=== PATIENT | female | born 1945 | race Two or more races ===

== ENCOUNTER 2024-05-12 18:39 | Inpatient (IN) | payer OTHER ==
[~2024-05-12] VITALS: Ht 160 cm; Wt 73.5 kg
--- NOTE | 2024-05-12 19:58 | NUR ---
PACIENTE ALERTA Y ORIENTADA X3 EN COMPANIA DE FAMILIAR. FAMILIAR REFIERE QUE PACIENTE COMENZO CON DIARREAS DESDE HACE UNOS APONTE QUE NO [place] DAV[place]. SE DOMINGA S/V Y SE UBICA.
[2024-05-12] MEDS ORDERED: KETOROLAC TROMETHAMINE 15 MG VIAL IM ONE (20:30)
--- NOTE | 2024-05-12 21:13 | NUR ---
SE ORIENTA A PACIENTE SOBRE TX MEDICO, REFIERE ENTENDER. SE REALIZAN MUESTRAS DE LABORATORIO BAJO MEDIDAS ASEPTICAS. SE ADMINISTRA MEDICAMENTO HILDA ORDEN MEDICA. SE COORDINA NC.
[2024-05-12 21:19] LABS: MEAN CELL VOLUME 91.4 fL (80.00-100.00); MEAN CORPUSCULAR HGB CONC 34.4 g/dl (32.0-36.0); PLATELET COUNT 151 K/uL (150-450); RED BLOOD COUNT 2.33 M/uL (4.00-6.00); RED CELL DISTRIBUTION WIDTH 16.8 % (11.5-14.5)
[2024-05-12 21:27] LABS: HEMATOCRIT 21.3 % (36.0-45.00); HEMOGLOBIN 7.3 g/dL (12.0-15.00); MEAN CORPUSCULAR HEMOGLOBIN 31.3 pg (27.00-32.0)
[2024-05-12 21:40] LABS: ALBUMIN 2.1 gm/dL (3.4-5.0); BILIRUBIN TOTAL 0.62 mg/dL (0.3-1.2); CALCIUM 8.8 mg/dL (8.5-10.1); CREATININE SERUM 1.6 mg/dL (0.55-1.02); GFR 31.09; GLOBULINA 4.9 G/DL (2.4-3.5); POTASSIUM 4.67 mEq/L (3.5-5.1)
[2024-05-12] MEDS ORDERED: ONDANSETRON HCL 4 MG in 0.9 % SODIUM CHLORIDE 50 ML IV PRN (23:45)
[2024-05-12] MEDS ORDERED: 0.9 % SODIUM CHLORIDE 1,000 ML IV SCH (23:45)
[2024-05-12] MEDS ORDERED: PANTOPRAZOLE SODIUM 40 MG/VIAL VIAL IV SCH (23:48)
[2024-05-13 00:16] LABS: URINE APPEARANCE Clear; URINE BILIRRUBIN Negative (NEGATIVE); URINE BLOOD Negative; URINE COLOR Yellow; URINE GLUCOSE Negative (NEGATIVE); URINE KETONE Negative (NEGATIVE); URINE LEUKOCYTE Negative; URINE NITRATE Negative; URINE PROTEIN Negative (NEGATIVE); URINE UROBILINOGEN 0.2 E.U./dl
[2024-05-13 00:20] LABS: URINE BACTERIA 24.4 uL (0.0-1933); URINE EPITHELIAL CELLS 4.5 uL (0.0-38.8); URINE RBC 3.3 uL (0.0-20.8); URINE WBC 19.2 uL (0.0-23.2)
[2024-05-13 00:25] LABS: URINE CAST 1.32 uL (0.0-1.40)
[2024-05-13] MEDS ORDERED: ATORVASTATIN CALCIUM 40 MG TABLET PO SCH (09:00)
[2024-05-13 09:39] LABS: INR 1.23; PARTIAL THROMBOPLASTIN TIME 29.3 SECONDS (22.0-34.0); PROTHROMBIN TIME 13.2 SECONDS (9.0-11.5)
[2024-05-13 09:40] VITALS: BP 83/65
[2024-05-13 09:51] VITALS: BP 83/65; O2SAT 99
[2024-05-13 16:14] VITALS: BP 95/55; O2SAT 97
[2024-05-13 18:22] VITALS: O2SAT 98
[2024-05-13 21:21] VITALS: O2SAT 96
[2024-05-14] VITALS (9 sets, daily range): BP systolic 94–107; BP diastolic 50–65; O2SAT 90–98
[2024-05-14] MEDS ORDERED: FENOFIBRATE150 MG PO (16:20)
[2024-05-14] MEDS ORDERED: NORVASC5 MG PO (16:20)
[2024-05-14] MEDS ORDERED: ATACAND HCT 321 EACH PO (16:20)
[2024-05-14] MEDS ORDERED: LIPITOR40 MG PO (16:20)
[2024-05-14] MEDS ORDERED: Cyanocobalamin/Mecobalamin 1 TAB.SL SL NR (16:45)
[2024-05-14] MEDS ORDERED: VITAMIN B COMPLEX 1 EACH PO SCH (17:00)
[2024-05-14 21:25] LABS: HEMATOCRIT 31.4 % (36.0-45.00); HEMOGLOBIN 10.6 g/dL (12.0-15.00); MEAN CELL VOLUME 88.8 fL (80.00-100.00); MEAN CORPUSCULAR HEMOGLOBIN 30.1 pg (27.00-32.0); MEAN CORPUSCULAR HGB CONC 33.9 g/dl (32.0-36.0); PLATELET COUNT 161 K/uL (150-450); RED BLOOD COUNT 3.54 M/uL (4.00-6.00); RED CELL DISTRIBUTION WIDTH 17.4 % (11.5-14.5)
[2024-05-14 21:31] LABS: ALBUMIN 2.1 gm/dL (3.4-5.0); CALCIUM 8.3 mg/dL (8.5-10.1); CREATININE SERUM 1.25 mg/dL (0.55-1.02); GFR 41.34; PHOSPHOROUS 2.9 mg/dL (2.5-4.9); POTASSIUM 4.65 mEq/L (3.5-5.1)
[2024-05-14 21:44] LABS: FERRITIN 1454.6 NG/ML (8-252)
[2024-05-15] VITALS (9 sets, daily range): BP systolic 100–132; BP diastolic 50–82; O2SAT 90–98
[2024-05-15 07:06] LABS: HEMATOCRIT 32.1 % (36.0-45.00); MEAN CELL VOLUME 89.5 fL (80.00-100.00); MEAN CORPUSCULAR HEMOGLOBIN 30.7 pg (27.00-32.0); MEAN CORPUSCULAR HGB CONC 34.3 g/dl (32.0-36.0); PLATELET COUNT 146 K/uL (150-450); RED BLOOD COUNT 3.59 M/uL (4.00-6.00); RED CELL DISTRIBUTION WIDTH 17.2 % (11.5-14.5)
[2024-05-15 07:34] LABS: ALBUMIN 1.9 gm/dL (3.4-5.0); CALCIUM 8.3 mg/dL (8.5-10.1); CREATININE SERUM 1.22 mg/dL (0.55-1.02); GFR 42.52; PHOSPHOROUS 2.9 mg/dL (2.5-4.9); POTASSIUM 4.42 mEq/L (3.5-5.1)
[2024-05-15] MEDS ORDERED: SOD FERRIC GLUC COMPLX/SUCROSE 62.5 MG/5 ML AMPUL IV SCH (09:00)
[2024-05-15] MEDS ORDERED: Cyanocobalamin/Mecobalamin 1 TAB.SL SL SCH (09:00)
[2024-05-15 12:28] LABS: FOLIC ACID 11.2 ng/ml (4.78-20)
[2024-05-15] MEDS ORDERED: POLYETHYLENE GLYCOL 3350 17 GM BLIST.PACK PO SCH (17:00)
[2024-05-16] VITALS: BP 100/54; O2SAT 95
[2024-05-16 01:00] VITALS: O2SAT 95
[2024-05-16 05:40] VITALS: O2SAT 89
[2024-05-16 09:31] LABS: HEMATOCRIT 32.5 % (36.0-45.00); RED BLOOD COUNT 3.6 M/uL (4.00-6.00)
[2024-05-16 10:24] VITALS: O2SAT 94
[2024-05-16] MEDS ORDERED: AMLODIPINE-OLM1 EAC2 (17:38)
== END 2024-05-16 11:20 | disposition home or self-care (01) | DRG 378 ==
LOC: ER 18:40 → SURG 23:54
PROVIDERS: General Practice; Internal Medicine Hematology & Oncology; Internal Medicine Nephrology; ADMIT Student in an Organized Health Care Education/Training Program; ATTEND Student in an Organized Health Care Education/Training Program
PROC: BW21ZZZ Computerized Tomography (CT Scan) of Abdomen and Pelvis (ICD-10-PCS; principal; 2024-05-12)
PROC: 4A12X4Z Monitoring of Cardiac Electrical Activity, External Approach (ICD-10-PCS; 2024-05-13)
PROC: 30233N1 Transfusion of Nonautologous Red Blood Cells into Peripheral Vein, Percutaneous Approach (ICD-10-PCS; 2024-05-13)
DX: K92.2 Gastrointestinal hemorrhage, unspecified (principal); N17.8 Other acute kidney failure; E78.49 Other hyperlipidemia; I12.9 Hypertensive chronic kidney disease with stage 1 through stage 4 chronic kidney disease, or unspecified chronic kidney disease; N18.30 Chronic kidney disease, stage 3 unspecified; D64.89 Other specified anemias; K62.89 Other specified diseases of anus and rectum

== ENCOUNTER 2024-05-16 17:23 | Inpatient (IN) | payer OTHER ==
[~2024-05-16] VITALS: Ht 162.6 cm; Wt 72.6 kg
[~2024-05-16 17:23] MED LIST: ATACAND HCT 321 EACH PO; FENOFIBRATE150 MG PO; LIPITOR40 MG PO; NORVASC5 MG PO
--- NOTE | 2024-05-16 17:30 | NUR ---
PACIENTE DORMIDA EN YADY CON PARAMEDICOS. FAMILIAR REFIERE LA MISMA SE DIRI ELZBIETA AL NORMA Y PRESENTABA DEBILIDAD POR LO CUAL REFIERE FAMILIAR SE DESPLOMO Y NO TENIA FUERZAS PARA LEVANTARSE. PACIENTE CON ANGIO #22 DE AMBULANCIA EN MANO DERECHA, AREA AMIE DE EDEMA Y/O ERITEMA. PACIENTE CON CANULA NASAL A [address] Alice LEVYIEN ORDENA COLOCAR EN AREA DE CRITICO. SE NOTIFICA A MR PRISCILLA FERNANDEZ PARA COLOCAR LA MISMA EN AREA INDICADA POR DRA Alice VAIL Y ENTRE- GAR A MR Dejon LEONE RN.
[2024-05-16] MEDS ORDERED: AMLODIPINE-OLM1 EAC2 (17:38)
[2024-05-16] MEDS ORDERED: PIPERACILLIN/TAZOBACTAM SODIUM 3.375 GM VIAL IV ONE ×2 (18:00→18:49)
[2024-05-16] MEDS ORDERED: PANTOPRAZOLE SODIUM 40 MG/VIAL VIAL IV ONE (18:00)
[2024-05-16 19:06] LABS: HEMATOCRIT 34.1 % (36.0-45.00); HEMOGLOBIN 11.5 g/dL (12.0-15.00); MEAN CELL VOLUME 89.6 fL (80.00-100.00); MEAN CORPUSCULAR HEMOGLOBIN 30.3 pg (27.00-32.0); MEAN CORPUSCULAR HGB CONC 33.8 g/dl (32.0-36.0)
[2024-05-16 19:14] LABS: POTASSIUM 4.75 mEq/L (3.5-5.1)
[2024-05-16 19:22] LABS: BILIRUBIN TOTAL 1.92 mg/dL (0.3-1.2); CALCIUM 8.2 mg/dL (8.5-10.1); CREATININE SERUM 1.31 mg/dL (0.55-1.02); GFR 39.16; GLOBULINA 4.9 G/DL (2.4-3.5); TOTAL PROTEIN 6.9 gm/dL (6.4-8.2)
[2024-05-16 19:29] LABS: INR 1.49
[2024-05-16 19:30] LABS: PLATELET COUNT 126 K/uL (150-450); PROTHROMBIN TIME 15.8 SECONDS (9.0-11.5)
[2024-05-16 19:37] LABS: D DIMER 4.42 MG/L
[2024-05-16] MEDS ORDERED: DIPHENHYDRAMINE HCL 50 MG/ML VIAL 1ML IV ONE (20:00)
[2024-05-16] MEDS ORDERED: 0.9 % SODIUM CHLORIDE 1,000 ML IV ONE (20:00)
[2024-05-16] MEDS ORDERED: METHYLPREDNISOLONE SOD SUCC 40 MG VIAL IV ONE (20:00)
[2024-05-16 20:14] LABS: ABG PH 7.456 (7.35-7.45); ABG PO2 93.7 mmHg (80-100); ABG pCO2 22.4 mmHg (35-45); BASE EXCESS -6.1 mmol/l; BICARBONATE 15.4 mmol/l (23-25); SaO2 97.6 %; Tco2 16.1 mmol/l
[2024-05-16 20:15] LABS: BILIRUBIN TOTAL 1.9 mg/dL (0.3-1.2); BILIRUBIN,CONJUGATED 1.09 mg/dL (0.0-0.2); BILIRUBIN,UNCONJUGATED 0.81 mg/dL (0.0-0.6)
[2024-05-16 20:22] LABS: PH,URINE 5.5 (5.0-8.0); URINE APPEARANCE Cloudy; URINE BILIRRUBIN Small (NEGATIVE); URINE BLOOD Moderate; URINE COLOR Dark Yellow; URINE GLUCOSE Negative (NEGATIVE); URINE KETONE Negative (NEGATIVE); URINE LEUKOCYTE Trace; URINE NITRATE Negative; URINE PROTEIN 30 (NEGATIVE)
[2024-05-16 20:26] LABS: URINE BACTERIA 554.4 uL (0.0-1933); URINE CAST 1.91 uL (0.0-1.40); URINE EPITHELIAL CELLS 18.6 uL (0.0-38.8); URINE RBC 16.2 uL (0.0-20.8)
[2024-05-16 20:44] LABS: URINE CRYSTALS MODERATE /HPF
--- NOTE | 2024-05-16 21:15 | NUR ---
SE EDUCA A PTE SOBRE TX MEDICO, SE DOMIGNA MUESTRAS DE LABORATORIO UTILIZANDO MEDIDAS ASEPTICAS. SE COLOCA H/L AMIE DE EDEMA EN BRAZO RT. SE ADMINISTRAN MEDICAMENTOS HILDA ORDEN MEDICA. SE NOTIFICAN ESTUDIOS DE CT Y RX PENDIENTES A REALIZAR. SE COLOCA DELA CRUZ A PTE UTILIZANDO MEDIDAS ASEPTICAS Y ESTERILES, SE ANDREW MUESTRAS DE UA Y UC. FAMILIARES DE PTE FIRMAN DNR+DNI, NO DIALYSIS, NO TRANSFUSIONES. PTE SE CONTINUA MONOITORIANDO POR CAMBIOS.
[2024-05-16] MEDS ORDERED: DIPHENHYDRAMINE HCL 50 MG/ML VIAL 1ML ONE (21:19)
[2024-05-16] MEDS ORDERED: METHYLPREDNISOLONE SOD SUCC 40 MG VIAL ONE (21:19)
[2024-05-16 21:47] LABS: allen test SATISFACTORY; mode ROOM AIR; o2 21 %; puncture site RADIAL RIGHT
--- NOTE | 2024-05-16 22:21 | NUR ---
PTE SE TRASLADA A UNIDAD DE OBSERVACION. PTE SE UBICA EN K7, SE CONECTA A MONITOR CARDIACO CON OXIMETRIA CONTINUA. PTE CON H/L X2 EN BRAZO RT AMIE DE EDEMA. PTE CON IV FLUIDS DE 0.9NSS BAJANDO A 80ML/HR. DELA CRUZ COLOCAD BAJANDO A GRAVEDAD. PTE CON DNR+DNI FIRMADO POR FAMILIARES. PTE EN ESPERA DE LECTURAS DE CT. PTE SE CONTINUA MONITORIANDO POR CAMBIOS.
[2024-05-16] MEDS ORDERED: 0.9 % SODIUM CHLORIDE 1,000 ML IV SCH (23:15)
[2024-05-16] MEDS ORDERED: CEFTRIAXONE SODIUM 2,000 MG in 0.9 % SODIUM CHLORIDE 100 ML IV SCH (23:17)
[2024-05-16] MEDS ORDERED: FUROsemide 20 MG/2 ML VIAL IV SCH (23:17)
[2024-05-16] MEDS ORDERED: MAGNESIUM HYDROXIDE 400 MG/5 ML ML PO ONE (23:30)
[2024-05-16] MEDS ORDERED: LACTULOSE 10 G/15 ML ML PO ONE (23:30)
[2024-05-16] MEDS ORDERED: ONDANSETRON HCL 4 MG in 0.9 % SODIUM CHLORIDE 50 ML IV PRN (23:30)
[2024-05-16] MEDS ORDERED: MINERAL OIL 30 ML BLIST.PACK PO ONE (23:30)
[2024-05-17] VITALS (9 sets, daily range): BP systolic 96–108; BP diastolic 55–62; O2SAT 92–98
[2024-05-17] MEDS ORDERED: METRONIDAZOLE/SODIUM CHLORIDE 100 ML IV SCH (01:00)
[2024-05-17] MEDS ORDERED: IPRATROPIUM BROMIDE 0.5 MG/2.5 ML AMPUL.NEB IH SCH (01:00)
[2024-05-17 07:46] LABS: ALBUMIN 1.8 gm/dL (3.4-5.0); BILIRUBIN TOTAL 1.36 mg/dL (0.3-1.2); BILIRUBIN,CONJUGATED 0.94 mg/dL (0.0-0.2); BILIRUBIN,UNCONJUGATED 0.42 mg/dL (0.0-0.6); TOTAL PROTEIN 6.1 gm/dL (6.4-8.2)
[2024-05-17 07:57] LABS: CHOL HDL RATIO 11.2 (0-5.0)
[2024-05-17 07:58] LABS: C-REACTIVE PROTEIN 9.92 MG/DL (0.00-0.29)
[2024-05-17 08:04] LABS: COVID-19 AG NEGATIVE (NEGATIVE)
[2024-05-17] MEDS ORDERED: PANTOPRAZOLE SODIUM 40 MG/VIAL VIAL IV SCH (09:00)
[2024-05-17] MEDS ORDERED: IRON FUM,PS/FOLIC/BCOMP,C NO.9 1 CAP CAPSULE PO SCH (09:00)
[2024-05-17 09:55] LABS: HEMATOCRIT 36.9 % (36.0-45.00); HEMOGLOBIN 12.5 g/dL (12.0-15.00); MEAN CELL VOLUME 89.8 fL (80.00-100.00); MEAN CORPUSCULAR HEMOGLOBIN 30.4 pg (27.00-32.0); MEAN CORPUSCULAR HGB CONC 33.8 g/dl (32.0-36.0); RED BLOOD COUNT 4.11 M/uL (4.00-6.00); RED CELL DISTRIBUTION WIDTH 18.1 % (11.5-14.5)
[2024-05-17 10:34] LABS: BILIRUBIN TOTAL 1.07 mg/dL (0.3-1.2); CALCIUM 8.4 mg/dL (8.5-10.1); CREATININE SERUM 1.35 mg/dL (0.55-1.02); GFR 37.83; GLOBULINA 4.6 G/DL (2.4-3.5); POTASSIUM 5.7 mEq/L (3.5-5.1); TOTAL PROTEIN 6.6 gm/dL (6.4-8.2)
[2024-05-17 10:48] LABS: PLATELET COUNT 82 K/uL (150-450)
[2024-05-18] VITALS (9 sets, daily range): BP systolic 96–118; BP diastolic 50–67; O2SAT 90–95
[2024-05-18 07:29] LABS: ALBUMIN 1.9 gm/dL (3.4-5.0); BILIRUBIN TOTAL 0.9 mg/dL (0.3-1.2); CALCIUM 8.3 mg/dL (8.5-10.1); CREATININE SERUM 1.35 mg/dL (0.55-1.02); GFR 37.83; POTASSIUM 4.91 mEq/L (3.5-5.1); TOTAL PROTEIN 5.9 gm/dL (6.4-8.2)
[2024-05-18 07:54] LABS: HEMOGLOBIN 11.1 g/dL (12.0-15.00); MEAN CORPUSCULAR HEMOGLOBIN 30.6 pg (27.00-32.0); MEAN CORPUSCULAR HGB CONC 34.8 g/dl (32.0-36.0); RED BLOOD COUNT 3.63 M/uL (4.00-6.00); RED CELL DISTRIBUTION WIDTH 18.1 % (11.5-14.5)
[2024-05-18 07:55] LABS: PLATELET COUNT 84 K/uL (150-450)
[2024-05-18] MEDS ORDERED: NA PHOS,M-B/NA PHOS,DI-BA 1 BOTTLE ENEMA RECTAL NR (10:36)
[2024-05-18 13:57] LABS: FECAL LEUKOCYTES NEGATIVE (NEGATIVE)
[2024-05-18 14:02] LABS: ob NEGATIVE (NEGATIVE)
[2024-05-18] MEDS ORDERED: SODIUM CL 0.9% 50 ML IV.SOLN IV ONE (16:25)
[2024-05-18 18:52] LABS: INFLUENZA A AG NEGATIVE (NEGATIVE)
[2024-05-19] VITALS (8 sets, daily range): BP systolic 90–104; BP diastolic 50–61; O2SAT 90–97
[2024-05-19 21:31] LABS: CALCIUM 8.3 mg/dL (8.5-10.1); CHOL HDL RATIO 7.9 (0-5.0); CREATININE SERUM 1.47 mg/dL (0.55-1.02); GFR 34.29; POTASSIUM 4.47 mEq/L (3.5-5.1)
[2024-05-20] VITALS (11 sets, daily range): BP systolic 73–101; BP diastolic 41–57; O2SAT 90–99
[2024-05-20] MEDS ORDERED: AMINO ACIDS 4.25 %/DEXTROSE 5% 1,000 ML PERIFERAL SCH (17:00)
[2024-05-21] VITALS (8 sets, daily range): BP systolic 90; BP diastolic 50–55; O2SAT 90–100
[2024-05-21 18:02] LABS: HEMOGLOBIN 11.6 g/dL (12.0-15.00); MEAN CELL VOLUME 87.2 fL (80.00-100.00); MEAN CORPUSCULAR HEMOGLOBIN 29.8 pg (27.00-32.0); MEAN CORPUSCULAR HGB CONC 34.2 g/dl (32.0-36.0); RED CELL DISTRIBUTION WIDTH 18.1 % (11.5-14.5)
[2024-05-21 18:24] LABS: CALCIUM 8.4 mg/dL (8.5-10.1); CREATININE SERUM 1.74 mg/dL (0.55-1.02); GFR 28.22; POTASSIUM 4.86 mEq/L (3.5-5.1)
[2024-05-21 18:27] LABS: PLATELET COUNT 66 K/uL (150-450)
[2024-05-22] VITALS (11 sets, daily range): BP systolic 82–123; BP diastolic 52–71; O2SAT 90–96
[2024-05-22] MEDS ORDERED: 0.9 % SODIUM CHLORIDE 1,000 ML IV SCH (14:45)
[2024-05-22] MEDS ORDERED: ENOXAPARIN SODIUM 30 MG/0.3 ML SYRINGE SUBCUTANEO SCH (17:00)
[2024-05-23 01:44] VITALS: BP 74/41; O2SAT 94
[2024-05-23 02:46] VITALS: O2SAT 90
[2024-05-23 07:25] LABS: ALBUMIN 1.6 gm/dL (3.4-5.0); BILIRUBIN TOTAL 1.36 mg/dL (0.3-1.2); CREATININE SERUM 1.61 mg/dL (0.55-1.02); GFR 30.87; GLOBULINA 3.8 G/DL (2.4-3.5); POTASSIUM 4.27 mEq/L (3.5-5.1); TOTAL PROTEIN 5.4 gm/dL (6.4-8.2)
[2024-05-23 08:35] VITALS: BP 90/50; O2SAT 97
[2024-05-23] MEDS ORDERED: PANTOPRAZOLE SODIUM 40 MG/VIAL VIAL IV SCH (09:00)
[2024-05-23] MEDS ORDERED: FUROsemide 20 MG/2 ML VIAL IV SCH (09:00)
[2024-05-23] MEDS ORDERED: METOPROLOL SUCCINATE 25 MG TAB.SR.24H PO SCH (12:00)
[2024-05-23 13:25] VITALS: O2SAT 98
[2024-05-23 13:50] LABS: HEMATOCRIT 27.7 % (36.0-45.00); MEAN CELL VOLUME 87.4 fL (80.00-100.00); MEAN CORPUSCULAR HGB CONC 34.3 g/dl (32.0-36.0); RED BLOOD COUNT 3.18 M/uL (4.00-6.00); RED CELL DISTRIBUTION WIDTH 18.5 % (11.5-14.5)
[2024-05-23 14:04] LABS: CALCIUM 7.8 mg/dL (8.5-10.1); CREATININE SERUM 1.68 mg/dL (0.55-1.02); GFR 29.39; POTASSIUM 4.34 mEq/L (3.5-5.1)
[2024-05-23 14:31] LABS: HEMOGLOBIN 9.5 g/dL (12.0-15.00); MEAN CORPUSCULAR HEMOGLOBIN 29.8 pg (27.00-32.0); PLATELET COUNT 75 K/uL (150-450)
[2024-05-23 15:45] LABS: ABG PH 7.465 (7.35-7.45); ABG PO2 64.1 mmHg (80-100); ABG pCO2 24.9 mmHg (35-45); BASE EXCESS -4.3 mmol/l; BICARBONATE 17.5 mmol/l (23-25); SaO2 93.3 %; Tco2 18.3 mmol/l
[2024-05-23 15:46] LABS: allen test SATISFACTORY; mode ROOM AIR; o2 21 %; puncture site RADIAL RIGHT
[2024-05-23 17:55] VITALS: BP 109/68; O2SAT 97
[2024-05-23 22:37] VITALS: BP 90/55; O2SAT 96
[2024-05-24 02:27] VITALS: BP 75/50; O2SAT 91
[2024-05-24 03:05] VITALS: BP 80/60
[2024-05-24 08:51] LABS: HEMATOCRIT 28.6 % (36.0-45.00); HEMOGLOBIN 9.7 g/dL (12.0-15.00); MEAN CELL VOLUME 88.1 fL (80.00-100.00); MEAN CORPUSCULAR HEMOGLOBIN 29.7 pg (27.00-32.0); MEAN CORPUSCULAR HGB CONC 33.8 g/dl (32.0-36.0); PLATELET COUNT 68 K/uL (150-450); RED BLOOD COUNT 3.25 M/uL (4.00-6.00); RED CELL DISTRIBUTION WIDTH 18.5 % (11.5-14.5)
[2024-05-24 09:14] LABS: ALBUMIN 1.6 gm/dL (3.4-5.0); BILIRUBIN TOTAL 1.4 mg/dL (0.3-1.2); CREATININE SERUM 1.73 mg/dL (0.55-1.02); GFR 28.41; GLOBULINA 3.7 G/DL (2.4-3.5); POTASSIUM 4.64 mEq/L (3.5-5.1); TOTAL PROTEIN 5.3 gm/dL (6.4-8.2)
[2024-05-24] MEDS ORDERED: MIDODRINE HCL 5 MG TABLET PO SCH (17:00)
[2024-05-24 18:13] VITALS: BP 93/54; O2SAT 98
[2024-05-25] VITALS (12 sets, daily range): BP systolic 73–136; BP diastolic 48–70; O2SAT 96–100
[2024-05-25] MEDS ORDERED: CEFTRIAXONE SODIUM 2,000 MG VIAL IV STA (00:23)
[2024-05-25] MEDS ORDERED: NOREPINEPHRINE BITARTRATE 8 MG in DEXTROSE 5 % IN WATER 250 ML IV SCH (00:30)
[2024-05-25 03:28] LABS: ABG PH 7.399 (7.35-7.45); ABG PO2 94.4 mmHg (80-100); ABG pCO2 24.6 mmHg (35-45); BASE EXCESS -7.9 mmol/l; BICARBONATE 14.9 mmol/l (23-25); SaO2 97.1 %; Tco2 15.6 mmol/l
[2024-05-25 06:58] LABS: allen test SATISFACTORY; mode NASAL CANNULA; o2 32 %; puncture site RADIAL LEFT
[2024-05-25] MEDS ORDERED: NOREPINEPHRINE BITARTRATE 1 MG/ML AMPUL IV ONE ×2 (07:04)
[2024-05-25 08:12] LABS: HEMOGLOBIN 11.5 g/dL (12.0-15.00); MEAN CELL VOLUME 87.7 fL (80.00-100.00); MEAN CORPUSCULAR HEMOGLOBIN 29.5 pg (27.00-32.0); MEAN CORPUSCULAR HGB CONC 33.7 g/dl (32.0-36.0); RED BLOOD COUNT 3.88 M/uL (4.00-6.00); RED CELL DISTRIBUTION WIDTH 18.9 % (11.5-14.5)
[2024-05-25 08:14] LABS: PLATELET COUNT 65 K/uL (150-450)
[2024-05-25] MEDS ORDERED: METHYLPREDNISOLONE SOD SUCC 40 MG VIAL IV NR (13:00)
[2024-05-25] MEDS ORDERED: CEFTRIAXONE SODIUM 2,000 MG VIAL IV SCH (17:00)
[2024-05-25 17:59] LABS: URINE APPEARANCE Cloudy; URINE BILIRRUBIN Small (NEGATIVE); URINE BLOOD Large; URINE COLOR Dark Yellow; URINE GLUCOSE Negative (NEGATIVE); URINE KETONE Trace (NEGATIVE); URINE LEUKOCYTE Small; URINE NITRATE Negative; URINE PROTEIN 30 (NEGATIVE)
[2024-05-25 18:03] LABS: URINE BACTERIA 447.9 uL (0.0-1933); URINE EPITHELIAL CELLS 44.8 uL (0.0-38.8); URINE RBC 414.8 uL (0.0-20.8); URINE WBC 22.7 uL (0.0-23.2)
[2024-05-25 18:22] LABS: URINE CRYSTALS MODERATE /HPF
[2024-05-25] MEDS ORDERED: METHYLPREDNISOLONE SOD SUCC 40 MG VIAL IV SCH (21:00)
[2024-05-25] MEDS ORDERED: CLOTRIMAZOLE 10 MG TROCHE MM SCH (21:00)
[2024-05-25] MEDS ORDERED: NOREPINEPHRINE BITARTRATE 4 MG in DEXTROSE 5 % IN WATER 250 ML IV SCH (23:30)
[2024-05-26] VITALS (14 sets, daily range): BP systolic 90–122; BP diastolic 49–69; O2SAT 98–100
[2024-05-26 07:03] LABS: HEMATOCRIT 32.8 % (36.0-45.00); HEMOGLOBIN 10.9 g/dL (12.0-15.00); MEAN CELL VOLUME 87.7 fL (80.00-100.00); MEAN CORPUSCULAR HEMOGLOBIN 29.2 pg (27.00-32.0); MEAN CORPUSCULAR HGB CONC 33.3 g/dl (32.0-36.0); RED BLOOD COUNT 3.74 M/uL (4.00-6.00); RED CELL DISTRIBUTION WIDTH 19.3 % (11.5-14.5)
[2024-05-26 07:07] LABS: PLATELET COUNT 68 K/uL (150-450)
[2024-05-26 07:20] LABS: COL EPI 84 SECONDS (82-175)
[2024-05-26 07:24] LABS: CALCIUM 8.2 mg/dL (8.5-10.1); CREATININE SERUM 1.94 mg/dL (0.55-1.02); GFR 24.89; POTASSIUM 5.07 mEq/L (3.5-5.1)
[2024-05-26 07:39] LABS: PLT IN CITRATE 64 K/uL (150-450)
[2024-05-26 07:49] LABS: D DIMER 3.93 MG/L
[2024-05-26 08:03] LABS: FIBRINOGEN 628 mg/dL (187.0-446.0)
[2024-05-26] MEDS ORDERED: SUCRALFATE 1 G TABLET PO SCH (09:00)
[2024-05-26] MEDS ORDERED: EPOETIN ALFA-EPBX 10,000 UNIT/ML VIAL (Retacrit) SUBCUTANEO SCH (09:00)
[2024-05-26 09:22] LABS: PLATELET ESTIMATE DECREASED (NORMAL)
[2024-05-26] MEDS ORDERED: ONDANSETRON HCL 4 MG in 0.9 % SODIUM CHLORIDE 50 ML IV PRN (18:30)
[2024-05-26] MEDS ORDERED: PHYTONADIONE 10 MG/ML AMPUL SUBCUTANEO NR (19:45)
[2024-05-26] MEDS ORDERED: INSULIN GLARGINE,HUM.REC.ANLOG 1,000 UNITS/10 ML UNITS SUBCUTANEO SCH (21:00)
[2024-05-27] VITALS (24 sets, daily range): BP systolic 87–114; BP diastolic 48–62; O2SAT 97–100
[2024-05-27 06:22] LABS: HEMATOCRIT 32.5 % (36.0-45.00); MEAN CELL VOLUME 86.5 fL (80.00-100.00); MEAN CORPUSCULAR HEMOGLOBIN 29.2 pg (27.00-32.0); MEAN CORPUSCULAR HGB CONC 33.8 g/dl (32.0-36.0); RED BLOOD COUNT 3.75 M/uL (4.00-6.00); RED CELL DISTRIBUTION WIDTH 19.1 % (11.5-14.5)
[2024-05-27 06:32] LABS: PLATELET COUNT 97 K/uL (150-450)
[2024-05-27 07:38] LABS: ALBUMIN 1.8 gm/dL (3.4-5.0); BILIRUBIN TOTAL 0.89 mg/dL (0.3-1.2); CREATININE SERUM 1.68 mg/dL (0.55-1.02); GFR 29.39; GLOBULINA 4.1 G/DL (2.4-3.5); MAGNESIUM 2.1 mg/dL (1.8-2.4); PHOSPHOROUS 4.5 mg/dL (2.5-4.9); POTASSIUM 5.61 mEq/L (3.5-5.1); TOTAL PROTEIN 5.9 gm/dL (6.4-8.2); TSH 0.611 uIU/mL (0.358-3.74)
[2024-05-27] MEDS ORDERED: 0.9 % SODIUM CHLORIDE 1,000 ML IV ONE (10:30)
[2024-05-27] MEDS ORDERED: SODIUM POLYSTYRENE SULFONATE 30G/8 TSP PO SCH (17:16)
[2024-05-28] VITALS (23 sets, daily range): BP systolic 87–109; BP diastolic 47–60; O2SAT 95–100
[2024-05-28 07:04] LABS: ALBUMIN 1.7 gm/dL (3.4-5.0); BILIRUBIN TOTAL 1.18 mg/dL (0.3-1.2); CALCIUM 7.6 mg/dL (8.5-10.1); CREATININE SERUM 1.38 mg/dL (0.55-1.02); GFR 36.88; GLOBULINA 3.9 G/DL (2.4-3.5); POTASSIUM 5.04 mEq/L (3.5-5.1); TOTAL PROTEIN 5.6 gm/dL (6.4-8.2)
[2024-05-28 08:59] LABS: HEMOGLOBIN 11.2 g/dL (12.0-15.00); MEAN CELL VOLUME 88.2 fL (80.00-100.00); MEAN CORPUSCULAR HEMOGLOBIN 29.2 pg (27.00-32.0); MEAN CORPUSCULAR HGB CONC 33.1 g/dl (32.0-36.0); RED BLOOD COUNT 3.85 M/uL (4.00-6.00); RED CELL DISTRIBUTION WIDTH 19.3 % (11.5-14.5)
[2024-05-28 09:46] LABS: PLATELET COUNT 101 K/uL (150-450)
[2024-05-28] MEDS ORDERED: HYDROCORTISONE SODIUM SUCC/PF 100 MG VIAL IV STA (10:57)
[2024-05-28] MEDS ORDERED: CITRIC ACID/SODIUM CITRATE 30 ML BLIST.PACK PO SCH (17:35)
[2024-05-28] MEDS ORDERED: HYDROCORTISONE SODIUM SUCC/PF 50 MG/ML ML IV SCH (18:00)
[2024-05-29] VITALS (16 sets, daily range): BP systolic 89–115; BP diastolic 46–69; O2SAT 96–99
[2024-05-29 06:48] LABS: ALBUMIN 1.5 gm/dL (3.4-5.0); BILIRUBIN TOTAL 0.85 mg/dL (0.3-1.2); CALCIUM 7.4 mg/dL (8.5-10.1); CREATININE SERUM 1.34 mg/dL (0.55-1.02); GFR 38.15; GLOBULINA 3.6 G/DL (2.4-3.5); POTASSIUM 3.34 mEq/L (3.5-5.1); TOTAL PROTEIN 5.1 gm/dL (6.4-8.2)
[2024-05-29] MEDS ORDERED: POTASSIUM BICARBONATE/CIT AC 25 MEQ TABLET.EFF PO SCH (17:00)
[2024-05-30] MEDS ORDERED: HYDROCORTISONE SODIUM SUCC/PF 50 MG/ML ML IV SCH (01:00)
[2024-05-30 04:00] VITALS: BP 91/45; O2SAT 98
[2024-05-30 07:34] VITALS: BP 96/52; O2SAT 100
[2024-05-30 10:23] LABS: HEMATOCRIT 33.9 % (36.0-45.00); HEMOGLOBIN 11.1 g/dL (12.0-15.00); MEAN CELL VOLUME 89.1 fL (80.00-100.00); MEAN CORPUSCULAR HEMOGLOBIN 29.3 pg (27.00-32.0); MEAN CORPUSCULAR HGB CONC 32.8 g/dl (32.0-36.0); RED CELL DISTRIBUTION WIDTH 19.9 % (11.5-14.5)
[2024-05-30 10:24] LABS: PLATELET COUNT 60 K/uL (150-450)
[2024-05-30 11:20] LABS: CALCIUM 7.7 mg/dL (8.5-10.1); CREATININE SERUM 1.39 mg/dL (0.55-1.02); GFR 36.57; POTASSIUM 4.34 mEq/L (3.5-5.1)
[2024-05-30 12:00] VITALS: BP 104/54; O2SAT 98
[2024-05-30 15:08] VITALS: BP 103/57; O2SAT 98
[2024-05-30 20:00] VITALS: BP 113/55; O2SAT 95
[2024-05-30 23:11] VITALS: BP 114/60; O2SAT 97
[2024-05-31 04:00] VITALS: BP 104/48; O2SAT 99
[2024-05-31 07:23] VITALS: BP 98/55; O2SAT 98
[2024-05-31 08:59] LABS: HEMATOCRIT 25.5 % (36.0-45.00); MEAN CELL VOLUME 88.4 fL (80.00-100.00); MEAN CORPUSCULAR HGB CONC 33.2 g/dl (32.0-36.0); RED BLOOD COUNT 2.88 M/uL (4.00-6.00); RED CELL DISTRIBUTION WIDTH 19.5 % (11.5-14.5)
[2024-05-31 09:24] LABS: HEMOGLOBIN 8.5 g/dL (12.0-15.00); MANUAL PLATELET COUNT 52; MEAN CORPUSCULAR HEMOGLOBIN 29.5 pg (27.00-32.0); PLATELET COUNT 41 K/uL (150-450)
[2024-05-31 09:26] LABS: PLT IN CITRATE 45 K/uL (150-450)
[2024-05-31 11:19] LABS: CALCIUM 7.5 mg/dL (8.5-10.1); POTASSIUM 3.44 mEq/L (3.5-5.1)
[2024-05-31 11:25] LABS: ALBUMIN 1.5 gm/dL (3.4-5.0); BILIRUBIN TOTAL 1.3 mg/dL (0.3-1.2); CREATININE SERUM 1.28 mg/dL (0.55-1.02); GFR 40.23; GLOBULINA 3.6 G/DL (2.4-3.5); TOTAL PROTEIN 5.1 gm/dL (6.4-8.2)
[2024-05-31 12:00] VITALS: BP 110/62; O2SAT 98
[2024-05-31] MEDS ORDERED: METOPROLOL SUCCINATE 25 MG TAB.SR.24H PO SCH (12:00)
[2024-05-31] MEDS ORDERED: FUROsemide 20 MG/2 ML VIAL IV SCH (12:30)
[2024-05-31] MEDS ORDERED: HYOSCYAMINE SULFATE 0.125 MG TAB.SUBL SL NR (14:15)
[2024-05-31] MEDS ORDERED: PANTOPRAZOLE SODIUM 40 MG/VIAL VIAL IV PUSH NR (14:15)
[2024-05-31 15:20] VITALS: BP 110/62; BP 87/49; BP 97/61; O2SAT 98
[2024-05-31] MEDS ORDERED: DOCUSATE SODIUM 100MG CAP PO SCH (17:00)
[2024-05-31] MEDS ORDERED: POTASSIUM BICARBONATE/CIT AC 25 MEQ TABLET.EFF PO SCH (17:00)
[2024-05-31 20:00] VITALS: BP 109/57; O2SAT 99
[2024-05-31 21:10] LABS: ob POSITIVE (NEGATIVE)
[2024-05-31 23:17] VITALS: BP 97/52; O2SAT 100
[2024-06-01] VITALS (7 sets, daily range): BP systolic 93–108; BP diastolic 5–68; O2SAT 97–100
[2024-06-01] MEDS ORDERED: HYOSCYAMINE SULFATE 0.125 MG TAB.SUBL SL SCH (09:00)
[2024-06-01] MEDS ORDERED: PANTOPRAZOLE SODIUM 40 MG/VIAL VIAL IV PUSH SCH ×2 (09:00→17:00)
[2024-06-01 17:47] LABS: HEMATOCRIT 34.8 % (36.0-45.00); MEAN CELL VOLUME 89.3 fL (80.00-100.00); MEAN CORPUSCULAR HGB CONC 33.6 g/dl (32.0-36.0); RED BLOOD COUNT 3.89 M/uL (4.00-6.00); RED CELL DISTRIBUTION WIDTH 19.2 % (11.5-14.5)
[2024-06-01 18:05] LABS: ALBUMIN 1.3 gm/dL (3.4-5.0); CREATININE SERUM 1.24 mg/dL (0.55-1.02); GFR 41.73; MAGNESIUM 1.8 mg/dL (1.8-2.4); PHOSPHOROUS 2.4 mg/dL (2.5-4.9); POTASSIUM 3.4 mEq/L (3.5-5.1)
[2024-06-01 18:17] LABS: HEMOGLOBIN 11.7 g/dL (12.0-15.00); PLATELET COUNT 31 K/uL (150-450)
[2024-06-02] VITALS (11 sets, daily range): BP systolic 73–108; BP diastolic 47–78; O2SAT 93–99
[2024-06-02] MEDS ORDERED: NOREPINEPHRINE BITARTRATE 1 MG/ML AMPUL IV ONE (17:16)
[2024-06-02] MEDS ORDERED: NOREPINEPHRINE BITARTRATE 8 MG in DEXTROSE 5 % IN WATER 250 ML IV SCH (17:30)
[2024-06-03] MEDS ORDERED: LEVALBUTEROL HCL 0.63 MG/3 ML SOLUTION IH ONE (21:25)
[2024-06-03] MEDS ORDERED: IPRATROPIUM BROMIDE 0.5 MG/2.5 ML AMPUL.NEB IH ONE (21:25)
[2024-06-03] MEDS ORDERED: FUROsemide 40 MG/4 ML VIAL ONE (21:41)
[2024-06-03 23:28] VITALS: BP 95/57; O2SAT 96
[2024-06-04] VITALS (22 sets, daily range): BP systolic 75–125; BP diastolic 17–90; O2SAT 00–100
[2024-06-04] MEDS ORDERED: FUROsemide 40 MG/4 ML VIAL ONE (00:46)
[2024-06-04] MEDS ORDERED: FUROsemide 40 MG/4 ML VIAL IV STA (01:28)
[2024-06-04 02:29] LABS: HEMATOCRIT 38.9 % (36.0-45.00); HEMOGLOBIN 12.7 g/dL (12.0-15.00); MEAN CELL VOLUME 89.9 fL (80.00-100.00); MEAN CORPUSCULAR HEMOGLOBIN 29.3 pg (27.00-32.0); MEAN CORPUSCULAR HGB CONC 32.6 g/dl (32.0-36.0); RED BLOOD COUNT 4.33 M/uL (4.00-6.00); RED CELL DISTRIBUTION WIDTH 22.7 % (11.5-14.5)
[2024-06-04 02:59] LABS: PLATELET COUNT 25 K/uL (150-450)
[2024-06-04 06:46] LABS: ABG PH 7.309 (7.35-7.45); ABG PO2 203.6 mmHg (80-100); ABG pCO2 22.7 mmHg (35-45); BASE EXCESS -12.9 mmol/l; BICARBONATE 11.1 mmol/l (23-25); SaO2 99.6 %; Tco2 11.8 mmol/l; o2 100 %; puncture site RADIAL LEFT
[2024-06-04 06:47] LABS: mode BPAP
[2024-06-04 06:58] LABS: ABG PH 7.345 (7.35-7.45); ABG PO2 70.1 mmHg (80-100); ABG pCO2 24.9 mmHg (35-45); BASE EXCESS -10.4 mmol/l; BICARBONATE 13.3 mmol/l (23-25); SaO2 92.1 %
[2024-06-04 06:59] LABS: allen test NO SATISFACTORY; mode NASAL CANNULA; o2 36 %; puncture site RADIAL RIGHT
[2024-06-04] MEDS ORDERED: ALBUMIN HUMAN-25 0.25GM/ML (50ML) VIAL IV SCH (09:00)
[2024-06-04] MEDS ORDERED: FUROsemide 20 MG/2 ML VIAL IV SCH (09:00)
[2024-06-04 10:31] LABS: CALCIUM 7.1 mg/dL (8.5-10.1); CREATININE SERUM 2.1 mg/dL (0.55-1.02); GFR 22.72; PHOSPHOROUS 3.7 mg/dL (2.5-4.9); POTASSIUM 4.19 mEq/L (3.5-5.1)
[2024-06-04 10:32] LABS: ALBUMIN 1.3 gm/dL (3.4-5.0); BILIRUBIN TOTAL 2.43 mg/dL (0.3-1.2); GLOBULINA 3.5 G/DL (2.4-3.5); MAGNESIUM 1.6 mg/dL (1.8-2.4); TOTAL PROTEIN 4.8 gm/dL (6.4-8.2)
[2024-06-04 16:00] LABS: ABG PH 7.339 (7.35-7.45); ABG PO2 100.5 mmHg (80-100); ABG pCO2 20.9 mmHg (35-45); BASE EXCESS -12.3 mmol/l; Tco2 11.6 mmol/l
[2024-06-04 16:06] LABS: allen test SATISFACTORY; mode BPAP; o2 50 %; puncture site RADIAL RIGHT
[2024-06-04] MEDS ORDERED: HYDROCORTISONE SODIUM SUCC/PF 100 MG VIAL IV STA (19:47)
[2024-06-04] MEDS ORDERED: CEFEPIME HCL 2,000 MG in 0.9 % SODIUM CHLORIDE 100 ML IV SCH (20:04)
[2024-06-05] VITALS (23 sets, daily range): BP systolic 84–135; BP diastolic 38–72; O2SAT 91–100
[2024-06-05] MEDS ORDERED: HYDROCORTISONE SODIUM SUCC/PF 100 MG VIAL IV SCH (02:00)
[2024-06-05] MEDS ORDERED: INSULIN LISPRO 1,000 UNIT/10 ML UNITS SUBCUTANEO PRN (07:30)
[2024-06-05] MEDS ORDERED: DEXTROSE 50 % IN WATER 0.5 G/ML VIAL IV PRN (07:30)
[2024-06-05 11:37] LABS: HEMATOCRIT 36.2 % (36.0-45.00); HEMOGLOBIN 11.7 g/dL (12.0-15.00); MEAN CELL VOLUME 90.8 fL (80.00-100.00); MEAN CORPUSCULAR HEMOGLOBIN 29.3 pg (27.00-32.0); MEAN CORPUSCULAR HGB CONC 32.3 g/dl (32.0-36.0); RED BLOOD COUNT 3.98 M/uL (4.00-6.00); RED CELL DISTRIBUTION WIDTH 21.9 % (11.5-14.5)
[2024-06-05 11:43] LABS: PLATELET COUNT 37 K/uL (150-450)
[2024-06-05 11:53] LABS: CALCIUM 7.7 mg/dL (8.5-10.1); CREATININE SERUM 2.78 mg/dL (0.55-1.02); GFR 16.44; POTASSIUM 4.72 mEq/L (3.5-5.1)
[2024-06-05] MEDS ORDERED: HYDROCORTISONE SODIUM SUCC/PF 50 MG/ML ML IV SCH (14:00)
[2024-06-05] MEDS ORDERED: (FF) Daptomycin 50 MG/ML IV SCH (17:00)
[2024-06-06] VITALS (16 sets, daily range): BP systolic 82–143; BP diastolic 52–74; O2SAT 96–100
[2024-06-06] MEDS ORDERED: FLUDROCORTISONE ACETATE 0.1 MG TABLET PO SCH (09:06)
[2024-06-06 13:14] LABS: CALCIUM 7.9 mg/dL (8.5-10.1); CREATININE SERUM 2.91 mg/dL (0.55-1.02); GFR 15.59; POTASSIUM 4.56 mEq/L (3.5-5.1)
[2024-06-06] MEDS ORDERED: AA 5 % NO.6/DEXTROSE 15 % 2,000 ML CENTRAL SCH (17:00)
[2024-06-06] MEDS ORDERED: LEVALBUTEROL HCL 1.25 MG/3 ML SOLUTION IH STA (21:43)
[2024-06-06] MEDS ORDERED: LEVALBUTEROL HCL 1.25 MG/3 ML SOLUTION IH ONE (21:51)
[2024-06-07] VITALS (11 sets, daily range): BP systolic 95–168; BP diastolic 46–96; O2SAT 96–100
[2024-06-07] MEDS ORDERED: LEVALBUTEROL HCL 1.25 MG/3 ML SOLUTION IH SCH (01:00)
[2024-06-07] MEDS ORDERED: LEVALBUTEROL HCL 1.25 MG/3 ML SOLUTION IH ONE (05:04)
[2024-06-07] MEDS ORDERED: HYDROCORTISONE SODIUM SUCC/PF 50 MG/ML ML IV SCH (17:00)
[2024-06-08 04:00] VITALS: BP 149/67; O2SAT 100
[2024-06-08 07:16] VITALS: BP 131/79; O2SAT 100
[2024-06-08 08:46] LABS: ABG PO2 111.2 mmHg (80-100); ABG pCO2 21.3 mmHg (35-45); BASE EXCESS -13.8 mmol/l; BICARBONATE 10.2 mmol/l (23-25); SaO2 97.4 %; Tco2 10.9 mmol/l
[2024-06-08 11:00] LABS: allen test SATISFACTORY; mode BPAP; o2 50 %; puncture site RADIAL RIGHT
[2024-06-08 11:59] VITALS: BP 115/81; O2SAT 100
[2024-06-08] MEDS ORDERED: ACETAMINOPHEN 500 MG GEL..CAP PO SCH (14:00)
[2024-06-08] MEDS ORDERED: ACETAMINOPHEN 500 MG GEL..CAP PO PRN (14:25)
[2024-06-08 15:21] VITALS: BP 101/62; O2SAT 94
[2024-06-08 20:00] VITALS: BP 107/47; O2SAT 99
[2024-06-08 22:59] VITALS: BP 100/59; O2SAT 100
[2024-06-09 04:00] VITALS: BP 104/66; O2SAT 100
[2024-06-09 07:10] LABS: HEMOGLOBIN 10.1 g/dL (12.0-15.00); MEAN CELL VOLUME 96.5 fL (80.00-100.00); MEAN CORPUSCULAR HEMOGLOBIN 30.4 pg (27.00-32.0); MEAN CORPUSCULAR HGB CONC 31.5 g/dl (32.0-36.0); RED BLOOD COUNT 3.32 M/uL (4.00-6.00); RED CELL DISTRIBUTION WIDTH 24.2 % (11.5-14.5)
[2024-06-09 07:17] VITALS: BP 83/68; O2SAT 100
[2024-06-09 07:45] LABS: PLATELET COUNT 14 K/uL (150-450)
[2024-06-09 07:54] LABS: INR 1.75
[2024-06-09 07:59] LABS: PARTIAL THROMBOPLASTIN TIME 52.9 SECONDS (22.0-34.0); PROTHROMBIN TIME 18.3 SECONDS (9.0-11.5)
[2024-06-09 08:00] LABS: ALBUMIN 1.3 gm/dL (3.4-5.0); BILIRUBIN TOTAL 3.32 mg/dL (0.3-1.2); CALCIUM 7.7 mg/dL (8.5-10.1); CHOL HDL RATIO 9.8 (0-5.0); CREATININE SERUM 3.06 mg/dL (0.55-1.02); GFR 14.71; GLOBULINA 2.8 G/DL (2.4-3.5); POTASSIUM 3.21 mEq/L (3.5-5.1); TOTAL PROTEIN 4.1 gm/dL (6.4-8.2)
[2024-06-09] MEDS ORDERED: INSULIN NPH HUMAN ISOPHANE 1,000 UNITS/10 ML UNITS SUBCUTANEO SCH ×2 (09:00→13:00)
[2024-06-09] MEDS ORDERED: HYDROCORTISONE SODIUM SUCC/PF 50 MG/ML ML IV SCH (09:00)
[2024-06-09 10:49] LABS: UREA CLEARANCE 1.3 ML/MIN
[2024-06-09 11:30] VITALS: O2SAT 97
[2024-06-09 13:57] VITALS: O2SAT 98
[2024-06-09] MEDS ORDERED: (FF) Daptomycin 50 MG/ML IV SCH (17:00)
[2024-06-09 17:09] VITALS: O2SAT 98
[2024-06-09] MEDS ORDERED: HYDROCORTISONE SODIUM SUCC/PF 100 MG VIAL IV SCH (18:00)
[2024-06-09 19:51] VITALS: O2SAT 100
[2024-06-10] MEDS ORDERED: HYDROCORTISONE SODIUM SUCC/PF 50 MG/ML ML IV SCH (12:00)
== END 2024-06-09 23:33 | disposition expired | DRG 871 ==
LOC: ER 17:23 → MEDI 23:22 → ER 23:22 → MEDI 05-20 16:23 → MEDJ 05-20 16:23 → ER 05-25 22:36 → MEDJ 05-25 22:36 → ICU 05-25 22:36 → MEDI 05-25 22:36 → MEDJ 05-25 22:37 → ICU 05-25 22:52 → MEDJ 05-25 22:52
PROVIDERS: General Practice; Internal Medicine; Internal Medicine Hematology & Oncology; Internal Medicine Nephrology; Student in an Organized Health Care Education/Training Program; ADMIT Student in an Organized Health Care Education/Training Program; ATTEND Student in an Organized Health Care Education/Training Program
PROC: BW28ZZZ Computerized Tomography (CT Scan) of Head (ICD-10-PCS; 2024-05-16)
PROC: BW24YZZ Computerized Tomography (CT Scan) of Chest and Abdomen using Other Contrast (ICD-10-PCS; 2024-05-16)
PROC: BW40ZZZ Ultrasonography of Abdomen (ICD-10-PCS; 2024-05-16)
PROC: BW21YZZ Computerized Tomography (CT Scan) of Abdomen and Pelvis using Other Contrast (ICD-10-PCS; 2024-05-16)
PROC: B24BZZZ Ultrasonography of Heart with Aorta (ICD-10-PCS; 2024-05-16)
PROC: 4A12X4Z Monitoring of Cardiac Electrical Activity, External Approach (ICD-10-PCS; 2024-05-17)
PROC: B345ZZZ Ultrasonography of Bilateral Common Carotid Arteries (ICD-10-PCS; 2024-05-18)
PROC: 02HV33Z Insertion of Infusion Device into Superior Vena Cava, Percutaneous Approach (ICD-10-PCS; principal; 2024-05-27)
PROC: 30233N1 Transfusion of Nonautologous Red Blood Cells into Peripheral Vein, Percutaneous Approach (ICD-10-PCS; 2024-05-31)
DX: A41.1 Sepsis due to other specified staphylococcus (principal); J96.00 Acute respiratory failure, unspecified whether with hypoxia or hypercapnia; T80.211A Bloodstream infection due to central venous catheter, initial encounter; R65.21 Severe sepsis with septic shock; I13.0 Hypertensive heart and chronic kidney disease with heart failure and stage 1 through stage 4 chronic kidney disease, or unspecified chronic kidney disease; I38 Endocarditis, valve unspecified; K81.0 Acute cholecystitis; N17.9 Acute kidney failure, unspecified; N39.0 Urinary tract infection, site not specified; I50.30 Unspecified diastolic (congestive) heart failure; E87.1 Hypo-osmolality and hyponatremia; E27.49 Other adrenocortical insufficiency; K92.2 Gastrointestinal hemorrhage, unspecified; E27.3 Drug-induced adrenocortical insufficiency; A41.81 Sepsis due to Enterococcus; R65.20 Severe sepsis without septic shock; D69.6 Thrombocytopenia, unspecified; D64.9 Anemia, unspecified; E78.5 Hyperlipidemia, unspecified; I35.0 Nonrheumatic aortic (valve) stenosis; I95.1 Orthostatic hypotension; R57.8 Other shock; R57.0 Cardiogenic shock; N18.30 Chronic kidney disease, stage 3 unspecified; I50.9 Heart failure, unspecified; E87.5 Hyperkalemia; T38.0X5A Adverse effect of glucocorticoids and synthetic analogues, initial encounter; Z79.4 Long term (current) use of insulin; E09.65 Drug or chemical induced diabetes mellitus with hyperglycemia; Y92.239 Unspecified place in hospital as the place of occurrence of the external cause; R00.0 Tachycardia, unspecified; K55.20 Angiodysplasia of colon without hemorrhage